=== PATIENT | female | born 1990 | race Caucasian/White ===

== ENCOUNTER → 2019-05-17 | Outpatient (CLI) | payer OTHER | LOC: COL.LAB 16:29 | DX: Z01.83 Encounter for blood typing (principal); O28.8 Other abnormal findings on antenatal screening of mother; Z3A.12 12 weeks gestation of pregnancy ==

== ENCOUNTER 2019-11-26 00:01 | Inpatient (IN) | payer OTHER ==
[~2019-11-26] VITALS: Ht 175.3 cm; Wt 84.1 kg
[2019-11-26] VITALS (50 sets, daily range): BP systolic 97–175; BP diastolic 52–82; PULSE 69–110; TEMP 97.6–99.7
--- NOTE | 2019-11-26 00:10 | NUR ---
Ambulatory to unit for labor admission, accompanied by family. Orineted to room, monitor, plan of care.
[2019-11-26] MEDS ORDERED: PNV-SELECT1 TAB PO (03:22)
[2019-11-26 04:03] LABS: BASO % 0.2 % (0.0-2.0); EOS # 0.3 (0.0-0.7); EOS % 2.3 % (0-4.0); GRAN # 9.2 (1.4-6.5); GRAN % 73.2 % (42.2-75.2); HEMATOCRIT 33.4 % (37.0-47.0); HEMOGLOBIN 11.4 g/dl (12.5-16.0); LYMPH # 1.8 (1.2-3.4); LYMPH % 14.6 % (20.0-51.0); MEAN CELL VOLUME 87 fl (80.0-100.0); MEAN CORPUSCULAR HEMOGLOBIN 30 pg (27.0-31.0); MEAN CORPUSCULAR HGB CONC 34 g/dl (33.0-37.0); MEAN PLATELET VOLUME 10.4 fl (7.4-10.4); MONO # 1.1 (0.1-0.6); MONO % 9.1 % (1.7-9.3); PLATELET COUNT 201 K/mm3 (130-400); RED BLOOD COUNT 3.84 M/mm3 (4.10-5.30); REDCELL DISTRIBUTION WIDTH-CV 13.1 % (11.5-14.5)
--- NOTE | 2019-11-26 04:30 | NUR ---
Pt reports "I think I started leaking when I was up walking" SVE as noted.
--- NOTE | 2019-11-26 06:30 | NUR ---
Dr Delgado here and at bedside. Updated. FHR reactive, pitocin started at 2mu. Pt requesting epidural. Will notify Genaro MALONE. IVF bolus started. 0700:Pt sitting up for epidural. Single shot dose at 0708 and epidural placed. Pt tolerated well. Repositioned.
--- NOTE | 2019-11-26 09:20 | NUR ---
SVE: /-1. Pt repositioned and resting comfortably in bed.
--- NOTE | 2019-11-26 12:45 | NUR ---
SVE: 9-10/100/0. Pt placed to right lateral and leg in stirrup. Dr Delgado updated.
--- NOTE | 2019-11-26 14:00 | NUR ---
SVE: complete +1. Pt prepped for delivery and instructions given on pushing. Pericare done and pt repositioned to sitting up. 1410:Pt begins to push with contractions. Prieto catheter removed. Pt continues to push and progress made. 1431:Dr Delgado called and notified he is needed for delivery. 1443:Dr Delgado here. Pt continues to push with contractions. 1452: of babys head and shoulders. 2nd degree laceration repaired by physician. 1456:Spontaneous delivery of placenta. LR with pitocin infusing per protocol at 333ml/hr. Fundus massaged, slightly boggy but firmed with massage. Dr Delgado at bedside. Pericare done and ice pack in place.
--- NOTE | 2019-11-26 15:10 | NUR ---
Pt having moderate amounts of free flow. Dr Delgado at bedside. 1512:Methergine 0.2mg given IM to left thigh. 1520:Fundus boggy, expressed baseball size clot onto ice pack and free flow noted. Fundus massaged and became firm. Bleeding slowed. 1532:VSS, pad weighed and 135ml noted to pad. 1545:Dr Delgado notified of bleeding episode. Order to keep IVF running with pitocin and continue to monitor. 1600:VSS. Fundus firm and bleeding small.
--- NOTE | 2019-11-26 17:30 | NUR ---
Pt to bathroom via wheelchair. Able to lift both legs off bed but left leg still feels numb to patient. Voids 500cc. Pericare instructions given. Fundus firm, bleeding WNL. New pads and gown on. Ice pack in place. Pt to wheelchair and to 207. Instructed pt to ask for help before getting up.
[2019-11-27] VITALS: BP 112/56; PULSE 83
[2019-11-27 04:53] VITALS: BP 106/59; PULSE 99
[2019-11-27 08:20] VITALS: BP 117/62; PULSE 95; TEMP 98
--- NOTE | 2019-11-27 09:11 | NUR ---
Initial visit attempt; Nurse with patient, Credit Review Manager left card of congratulations and God's Blessings for the of their daughter and information regarding the availability of spiritual care at [facility].
== END 2019-11-27 17:30 | disposition home or self-care (01) | DRG 807 ==
LOC: LDRO 00:01 → LDR 01:35 → OB 01:35
PROVIDERS: ADMIT Obstetrics & Gynecology
PROC: 10E0XZZ Delivery of Products of Conception, External Approach (ICD-10-PCS; principal; 2019-11-26)
PROC: 0KQM0ZZ Repair Perineum Muscle, Open Approach (ICD-10-PCS; 2019-11-26)
DX: O70.1 Second degree perineal laceration during delivery (principal); Z37.0 Single live birth; O62.2 Other uterine inertia; Z3A.39 39 weeks gestation of pregnancy
CPT/HCPCS: J2210; J2590; J2795; J7120

== ENCOUNTER → 2022-12-23 | Outpatient (CLI) | payer OTHER ==
[~2022-12-23] MED LIST: PNV-SELECT1 TAB PO
== END ==
LOC: COL.LAB 15:08
DX: O28.9 Unspecified abnormal findings on antenatal screening of mother (principal)